=== PATIENT | male | born 1960 | race African-American/Black ===

== ENCOUNTER 2022-05-04 02:06 | Inpatient (IN) | payer MEDICAID ==
[~2022-05-04] VITALS: Ht 182.9 cm; Wt 156.7 kg
[~2022-05-04 02:06] MED LIST: ALLO100T PO; CARB-80 PO; HYDR-4833 PO; MELO1TAB56 PO; OMEP-260 PO; SENN8.6C PO; TIZA4TAB9 PO
[2022-05-04] MEDS ORDERED: SODIUM CHLORIDE 0.9% 1,000 ML IV ONE (02:30)
[2022-05-04] MEDS ORDERED: NITROGLYCERIN 0.4 MG SL TAB SL ONE (02:30)
[2022-05-04 03:34] LABS: Hemoglobin 12.5 g/dL (13.5-17.5)
[2022-05-04 03:37] LABS: Hematocrit 39.1 % (41.0-53.0); Mean Corpuscular Hemoglobin 26.9 pg (28.0-32.0); Red Blood Cells 4.66 10^6/uL (4.5-5.90); Red Cell Distribution Width 14.7 % (11.8-14.3)
[2022-05-04 03:58] LABS: INR 1.4 (0.9-1.15); Partial Thromboplastin Time 32.4 sec (23.6-33.0)
[2022-05-04 04:04] LABS: White Blood Cell 37.8 10^3/uL (4.4-10.8)
[2022-05-04 04:05] LABS: Basophils % (manual) 0 (0.0-2.0); Blast Cells 0; Eosinophils % (manual) 0 (0-7); Promyelocytes % 0; Reactive Lymphocytes 0
[2022-05-04] MEDS ORDERED: cefTRIAXone 1GM/50ML D5W 50 ML IV ONE (04:15)
[2022-05-04] MEDS ORDERED: AZITHROMYCIN 500MG/ 250ML 250 ML IV ONE (04:15)
[2022-05-04 04:26] LABS: Albumin 1.8 g/dL (3.4-5.0); BUN/Creatinine Ratio 27.5; Calcium 8.5 mg/dL (8.5-10.1)
[2022-05-04 04:28] LABS: Bilirubin, Total 0.8 mg/dL (0.2-1.0); Total Protein 7.7 g/dL (6.4-8.2)
[2022-05-04 04:39] LABS: Band Neutrophils % (manual) 20; Lymphocytes % (manual) 7 (10.0-50.0); Metamyelocytes % 2; Monocytes % (manual) 10 (0-12); Myelocytes % 2
[2022-05-04] MEDS ORDERED: MORPHINE SULFATE INJ 2 MG/ml SYRG IV PRN (06:15)
[2022-05-04] MEDS ORDERED: ACETAMINOPHEN 325 MG TAB PO PRN (06:15)
[2022-05-04] MEDS ORDERED: SODIUM CHLORIDE 0.9% 1,000 ML IV SCH (06:15)
[2022-05-04] MEDS ORDERED: LORazepam 0.5 MG TAB PO PRN (06:15)
[2022-05-04] MEDS ORDERED: NITROGLYCERIN 0.4 MG SL TAB SL PRN (06:15)
[2022-05-04] MEDS ORDERED: ZOLPIDEM TARTRATE 5 MG TAB PO PRN (06:15)
[2022-05-04] MEDS: DOCUSATE SOD 100 MG CAP PO SCH ×2 (10:00→10:34)
[2022-05-04] MEDS ORDERED: LISINOPRIL 10 MG TAB PO SCH (10:00)
[2022-05-04] MEDS: CLOPIDOGREL BISULFATE 75 MG TAB PO SCH ×2 (10:00→10:35)
[2022-05-04] MEDS ORDERED: METOPROLOL TARTRATE 25 MG TAB PO SCH (10:00)
[2022-05-04] MEDS: ENOXAPARIN SOD 60 MG/0.6 ML SYRINGE SC SCH (10:34)
[2022-05-04 11:47] LABS: Urine Bacteria FEW /hpf (None Seen); Urine Blood 1+ /uL (Negative); Urine Mucus FEW (None Seen); Urine Specific Gravity 1.028 (1.001-1.035); Urine WBC 166 /hpf (0 - 3)
[2022-05-04] MEDS ORDERED: VANCOMYCIN PER PHARMACY 0 MG IV SCH (13:00)
[2022-05-04] MEDS: VANCOMYCIN 1GM/250ML 250 ML IV SCH (15:16)
[2022-05-04 17:03] VITALS: BP 100/70
[2022-05-04] MEDS: PIPERACILLIN-TAZOB 3.375GM 100 ML IV SCH (17:25)
[2022-05-04 20:00] VITALS: BP 89/60
[2022-05-04] MEDS: ATORVASTATIN 20 MG TAB PO SCH (22:01)
[2022-05-05] VITALS (63 sets, daily range): BP systolic 82–132; BP diastolic 33–80
[2022-05-05] MEDS: PIPERACILLIN-TAZOB 3.375GM 100 ML IV SCH ×4 (00:15→18:36)
[2022-05-05] MEDS: VANCOMYCIN 1GM/250ML 250 ML IV SCH ×3 (01:00→15:30)
[2022-05-05 02:00] LABS: Hematocrit 34.6 % (41.0-53.0); Hemoglobin 11.2 g/dL (13.5-17.5); Mean Corpuscular Hemoglobin 27.3 pg (28.0-32.0); Mean Corpuscular Hgb Conc. 32.3 g/dL (32.0-36.0); Mean Corpuscular Volume 84.5 fL (80.0-100.0)
[2022-05-05 02:02] LABS: Red Blood Cells 4.09 10^6/uL (4.5-5.90); Red Cell Distribution Width 14.8 % (11.8-14.3)
[2022-05-05 02:18] LABS: Albumin 1.6 g/dL (3.4-5.0); Calcium 7.9 mg/dL (8.5-10.1); Magnesium 2.4 mg/dL (1.6-2.6); Potassium 4.6 mmol/L (3.5-5.1)
[2022-05-05 02:22] LABS: BUN/Creatinine Ratio 31.1; Bilirubin, Total 0.9 mg/dL (0.2-1.0); Total Protein 6.9 g/dL (6.4-8.2)
[2022-05-05 02:33] LABS: White Blood Cell 37.8 10^3/uL (4.4-10.8)
[2022-05-05 02:34] LABS: Basophils % (manual) 0 (0.0-2.0); Blast Cells 0; Eosinophils % (manual) 0 (0-7); Promyelocytes % 0; Reactive Lymphocytes 0
[2022-05-05 03:05] LABS: Band Neutrophils % (manual) 13; Metamyelocytes % 1; Monocytes % (manual) 5 (0-12); Myelocytes % 1
[2022-05-05 03:07] LABS: Lymphocytes % (manual) 3 (10.0-50.0)
[2022-05-05] MEDS ORDERED: ALBUMIN 5% 50 ML IV ONE (04:30)
[2022-05-05] MEDS ORDERED: ALBUMIN 25% 100 ML IV ONE (04:41)
[2022-05-05] MEDS ORDERED: ALBUMIN 25% 50 ML IV ONE ×2 (04:45)
[2022-05-05] MEDS ORDERED: cefTRIAXone 1GM/50ML D5W 50 ML IV SCH (05:00)
[2022-05-05] MEDS ORDERED: NOREPINEPHRINE 8 MG/250ML KIT 250 ML IV ONE (05:02)
[2022-05-05] MEDS: NOREPINEPHRINE 8 MG/250ML KIT 250 ML IV SCH (05:41)
[2022-05-05] MEDS ORDERED: AZITHROMYCIN 500MG/ 250ML 250 ML IV SCH (06:00)
[2022-05-05] MEDS: CLOPIDOGREL BISULFATE 75 MG TAB PO SCH (09:53)
[2022-05-05] MEDS: DOCUSATE SOD 100 MG CAP PO SCH (09:53)
[2022-05-05] MEDS: ENOXAPARIN SOD 60 MG/0.6 ML SYRINGE SC SCH (11:06)
[2022-05-05] MEDS ORDERED: ALBUMIN 25% 100 ML IV SCH (12:45)
[2022-05-05] MEDS: ALBUMIN 25% 100 ML IV SCH ×2 (14:00→22:23)
[2022-05-05] MEDS: ATORVASTATIN 20 MG TAB PO SCH (22:00)
[2022-05-06] VITALS (73 sets, daily range): BP systolic 94–129; BP diastolic 52–72
[2022-05-06] MEDS: PIPERACILLIN-TAZOB 3.375GM 100 ML IV SCH ×2 (00:30→06:00)
[2022-05-06] MEDS: VANCOMYCIN 1GM/250ML 250 ML IV SCH ×2 (02:15→13:13)
[2022-05-06 05:31] LABS: Hematocrit 30.6 % (41.0-53.0); Hemoglobin 9.8 g/dL (13.5-17.5)
[2022-05-06 05:33] LABS: Mean Corpuscular Hemoglobin 27.1 pg (28.0-32.0); Mean Corpuscular Hgb Conc. 31.9 g/dL (32.0-36.0); Red Blood Cells 3.59 10^6/uL (4.5-5.90); Red Cell Distribution Width 14.4 % (11.8-14.3)
[2022-05-06 05:49] LABS: Potassium 3.9 mmol/L (3.5-5.1)
[2022-05-06 05:53] LABS: White Blood Cell 32.8 10^3/uL (4.4-10.8)
[2022-05-06 05:54] LABS: Basophils % (manual) 0 (0.0-2.0); Blast Cells 0; Eosinophils % (manual) 0 (0-7); Metamyelocytes % 0; Myelocytes % 0; Promyelocytes % 0; Reactive Lymphocytes 0
[2022-05-06 05:57] LABS: Albumin 2.1 g/dL (3.4-5.0); BUN/Creatinine Ratio 28.1; Bilirubin, Total 1.4 mg/dL (0.2-1.0); Calcium 7.8 mg/dL (8.5-10.1); Total Protein 6.4 g/dL (6.4-8.2)
[2022-05-06 07:44] LABS: Band Neutrophils % (manual) 17; Lymphocytes % (manual) 4 (10.0-50.0); Monocytes % (manual) 3 (0-12)
[2022-05-06] MEDS: ENOXAPARIN SOD 40 MG/0.4 ML SYRINGE SC SCH (10:53)
[2022-05-06] MEDS: DOCUSATE SOD 100 MG CAP PO SCH (10:53)
[2022-05-06] MEDS: CLOPIDOGREL BISULFATE 75 MG TAB PO SCH (10:53)
[2022-05-06] MEDS ORDERED: OPTISON 3ml Vial for INJ IV ONE (11:21)
[2022-05-06] MEDS ORDERED: CEFEPIME 2 GM in SODIUM CHL 0.9% 50 ML IV SCH (14:00)
[2022-05-06] MEDS ORDERED: MEROPENEM 1GM IVPB 100 ML IV ONE (15:15)
[2022-05-06] MEDS ORDERED: IOHEXOL 350 MG/ML 100ML IJ ONE (15:44)
[2022-05-06] MEDS: NOREPINEPHRINE 8 MG/250ML KIT 250 ML IV SCH (20:00)
[2022-05-06] MEDS: MEROPENEM 1GM IVPB 100 ML IV SCH (21:31)
[2022-05-06] MEDS: ATORVASTATIN 20 MG TAB PO SCH (21:48)
[2022-05-06] MEDS: MORPHINE SULFATE INJ 2 MG/ml SYRG IV PRN (21:49)
[2022-05-07] VITALS (39 sets, daily range): BP systolic 97–124; BP diastolic 54–73
[2022-05-07] MEDS: NOREPINEPHRINE 8 MG/250ML KIT 250 ML IV SCH (04:12)
[2022-05-07] MEDS: MORPHINE SULFATE INJ 2 MG/ml SYRG IV PRN ×2 (04:45→21:08)
[2022-05-07 05:11] LABS: Hemoglobin 10.1 g/dL (13.5-17.5)
[2022-05-07 05:17] LABS: Hematocrit 31.3 % (41.0-53.0); Mean Corpuscular Hemoglobin 27.2 pg (28.0-32.0); Mean Corpuscular Hgb Conc. 32.1 g/dL (32.0-36.0); Mean Corpuscular Volume 84.8 fL (80.0-100.0); Red Cell Distribution Width 14.6 % (11.8-14.3)
[2022-05-07] MEDS: MEROPENEM 1GM IVPB 100 ML IV SCH ×3 (05:28→23:51)
[2022-05-07 05:55] LABS: White Blood Cell 33.7 10^3/uL (4.4-10.8)
[2022-05-07 05:56] LABS: Basophils % (manual) 0 (0.0-2.0); Blast Cells 0; Promyelocytes % 0; Reactive Lymphocytes 0
[2022-05-07 07:22] LABS: Band Neutrophils % (manual) 2; Eosinophils % (manual) 1 (0-7); Lymphocytes % (manual) 3 (10.0-50.0); Metamyelocytes % 2; Monocytes % (manual) 3 (0-12); Myelocytes % 1
[2022-05-07 07:41] LABS: Albumin 1.9 g/dL (3.4-5.0); Calcium 8.2 mg/dL (8.5-10.1); Potassium 4.2 mmol/L (3.5-5.1)
[2022-05-07 07:44] LABS: Bilirubin, Total 0.8 mg/dL (0.2-1.0); Total Protein 6.7 g/dL (6.4-8.2)
[2022-05-07] MEDS: ENOXAPARIN SOD 40 MG/0.4 ML SYRINGE SC SCH (10:00)
[2022-05-07] MEDS: CLOPIDOGREL BISULFATE 75 MG TAB PO SCH (10:00)
[2022-05-07] MEDS: DOCUSATE SOD 100 MG CAP PO SCH (10:00)
[2022-05-07] MEDS: ONDANSETRON HCL 4 MG/2 ML VIAL IV PRN (21:07)
[2022-05-07] MEDS: ATORVASTATIN 20 MG TAB PO SCH (23:51)
[2022-05-08] MEDS: MORPHINE SULFATE INJ 2 MG/ml SYRG IV PRN (03:54)
[2022-05-08] MEDS: ONDANSETRON HCL 4 MG/2 ML VIAL IV PRN (03:54)
[2022-05-08 05:00] VITALS: BP 130/70
[2022-05-08] MEDS: MEROPENEM 1GM IVPB 100 ML IV SCH ×3 (06:59→22:36)
[2022-05-08 08:38] VITALS: BP 119/74
[2022-05-08] MEDS: CLOPIDOGREL BISULFATE 75 MG TAB PO SCH (10:00)
[2022-05-08] MEDS: DOCUSATE SOD 100 MG CAP PO SCH (10:00)
[2022-05-08 12:48] VITALS: BP 126/66
[2022-05-08] MEDS: ENOXAPARIN SOD 40 MG/0.4 ML SYRINGE SC SCH (12:50)
[2022-05-08 17:27] VITALS: BP 121/70
[2022-05-08 22:00] VITALS: BP 119/67
[2022-05-08] MEDS: ATORVASTATIN 20 MG TAB PO SCH (22:00)
[2022-05-09 05:00] VITALS: BP 121/65
[2022-05-09 06:12] LABS: Hemoglobin 10.3 g/dL (13.5-17.5)
[2022-05-09 06:15] LABS: Hematocrit 32.8 % (41.0-53.0); Mean Corpuscular Hgb Conc. 31.6 g/dL (32.0-36.0); Mean Corpuscular Volume 85.5 fL (80.0-100.0); Red Blood Cells 3.83 10^6/uL (4.5-5.90); Red Cell Distribution Width 14.7 % (11.8-14.3); White Blood Cell 25.3 10^3/uL (4.4-10.8)
[2022-05-09 06:21] LABS: Basophils % (manual) 0 (0.0-2.0); Blast Cells 0; Promyelocytes % 0; Reactive Lymphocytes 0
[2022-05-09] MEDS: MEROPENEM 1GM IVPB 100 ML IV SCH ×3 (06:28→22:35)
[2022-05-09 06:37] LABS: Potassium 4.5 mmol/L (3.5-5.1)
[2022-05-09 06:56] LABS: Albumin 1.9 g/dL (3.4-5.0); BUN/Creatinine Ratio 38.9; Bilirubin, Total 0.8 mg/dL (0.2-1.0); Calcium 8.4 mg/dL (8.5-10.1); Total Protein 7.2 g/dL (6.4-8.2)
[2022-05-09 07:14] LABS: Band Neutrophils % (manual) 1; Eosinophils % (manual) 1 (0-7); Lymphocytes % (manual) 1 (10.0-50.0); Metamyelocytes % 1; Monocytes % (manual) 4 (0-12); Myelocytes % 3
[2022-05-09 09:00] VITALS: BP 124/72
[2022-05-09] MEDS ORDERED: VANCOMYCIN 1GM/250ML 250 ML IV ONE (11:00)
[2022-05-09] MEDS: ENOXAPARIN SOD 40 MG/0.4 ML SYRINGE SC SCH (12:12)
[2022-05-09] MEDS: CLOPIDOGREL BISULFATE 75 MG TAB PO SCH (12:12)
[2022-05-09] MEDS: DOCUSATE SOD 100 MG CAP PO SCH (12:13)
[2022-05-09 13:00] VITALS: BP 117/70
[2022-05-09 17:00] VITALS: BP 121/72
[2022-05-09 21:53] VITALS: BP 152/76
[2022-05-09] MEDS: ATORVASTATIN 20 MG TAB PO SCH (22:00)
[2022-05-10 05:00] VITALS: BP 138/77
[2022-05-10 05:54] LABS: Hemoglobin 10.5 g/dL (13.5-17.5); Mean Corpuscular Hemoglobin 27.3 pg (28.0-32.0); Red Blood Cells 3.85 10^6/uL (4.5-5.90); Red Cell Distribution Width 14.7 % (11.8-14.3)
[2022-05-10 05:57] LABS: Hematocrit 32.9 % (41.0-53.0); Mean Corpuscular Hgb Conc. 31.8 g/dL (32.0-36.0); Mean Corpuscular Volume 85.6 fL (80.0-100.0); White Blood Cell 19.8 10^3/uL (4.4-10.8)
[2022-05-10 06:01] LABS: Basophils % (manual) 0 (0.0-2.0); Blast Cells 0; Eosinophils % (manual) 0 (0-7); Promyelocytes % 0; Reactive Lymphocytes 0
[2022-05-10 06:03] LABS: Calcium 8.4 mg/dL (8.5-10.1); Potassium 4.4 mmol/L (3.5-5.1)
[2022-05-10] MEDS: MEROPENEM 1GM IVPB 100 ML IV SCH ×3 (06:05→22:22)
[2022-05-10 06:07] LABS: BUN/Creatinine Ratio 43.4; Bilirubin, Total 0.5 mg/dL (0.2-1.0); Total Protein 7.4 g/dL (6.4-8.2)
[2022-05-10 09:00] VITALS: BP 143/75
[2022-05-10 09:28] LABS: Band Neutrophils % (manual) 10; Lymphocytes % (manual) 11 (10.0-50.0); Metamyelocytes % 1; Monocytes % (manual) 2 (0-12); Myelocytes % 1
[2022-05-10] MEDS: ENOXAPARIN SOD 40 MG/0.4 ML SYRINGE SC SCH (10:49)
[2022-05-10] MEDS: CLOPIDOGREL BISULFATE 75 MG TAB PO SCH (10:49)
[2022-05-10] MEDS: DOCUSATE SOD 100 MG CAP PO SCH (10:49)
[2022-05-10 13:00] VITALS: BP 127/71
[2022-05-10] MEDS ORDERED: VANCOMYCIN 1GM/250ML 250 ML IV ONE (13:15)
[2022-05-10 17:00] VITALS: BP 157/85
[2022-05-10 21:57] VITALS: BP 173/91
[2022-05-10] MEDS: ATORVASTATIN 20 MG TAB PO SCH (22:00)
[2022-05-10 22:22] VITALS: BP 146/82
[2022-05-10] MEDS: ACETAMINOPHEN 650 MG RECT SUPP PR PRN (22:22)
[2022-05-10] MEDS ORDERED: Jevity 1.2 Cal/Fiber 1 Liter NG SCH (23:30)
[2022-05-11 04:48] VITALS: BP 140/77
[2022-05-11] MEDS: MEROPENEM 1GM IVPB 100 ML IV SCH ×3 (05:46→22:29)
[2022-05-11 06:13] LABS: Hematocrit 36.1 % (41.0-53.0); Hemoglobin 11.7 g/dL (13.5-17.5); Mean Corpuscular Hgb Conc. 32.4 g/dL (32.0-36.0); Mean Corpuscular Volume 86.4 fL (80.0-100.0); Red Blood Cells 4.18 10^6/uL (4.5-5.90); Red Cell Distribution Width 14.6 % (11.8-14.3); White Blood Cell 22.3 10^3/uL (4.4-10.8)
[2022-05-11 06:17] LABS: Basophils % (manual) 0 (0.0-2.0); Blast Cells 0; Promyelocytes % 0; Reactive Lymphocytes 0
[2022-05-11 06:19] LABS: Potassium 4.6 mmol/L (3.5-5.1)
[2022-05-11 06:22] LABS: BUN/Creatinine Ratio 45.5
[2022-05-11 07:23] LABS: Band Neutrophils % (manual) 12; Eosinophils % (manual) 1 (0-7); Lymphocytes % (manual) 5 (10.0-50.0); Metamyelocytes % 1; Monocytes % (manual) 10 (0-12); Myelocytes % 2
[2022-05-11 09:00] VITALS: BP 115/64
[2022-05-11] MEDS: Pro-Stat SF 30ml Vanilla NG SCH ×2 (10:00→22:00)
[2022-05-11] MEDS: CLOPIDOGREL BISULFATE 75 MG TAB PO SCH (10:00)
[2022-05-11] MEDS: DOCUSATE SOD 100 MG CAP PO SCH (10:00)
[2022-05-11] MEDS: MULTIPLE VITAMINS W/ MINERALS TAB PO SCH (10:00)
[2022-05-11] MEDS: Juven Fruit Punch Powder PACKET 28.8gm PO SCH (10:00)
[2022-05-11] MEDS: ENOXAPARIN SOD 40 MG/0.4 ML SYRINGE SC SCH (11:37)
[2022-05-11] MEDS: SODIUM CHLORIDE 0.9% 1,000 ML IV SCH ×2 (11:40→23:50)
[2022-05-11 17:00] VITALS: BP 130/72
[2022-05-11 22:00] VITALS: BP 142/80
[2022-05-11] MEDS: ATORVASTATIN 20 MG TAB PO SCH (22:30)
[2022-05-12 05:00] VITALS: BP 132/70
[2022-05-12] MEDS: MEROPENEM 1GM IVPB 100 ML IV SCH ×3 (06:19→21:56)
[2022-05-12 07:09] LABS: Potassium 4.5 mmol/L (3.5-5.1)
[2022-05-12 07:12] LABS: Eosinophils # (auto) 0.1 10 ^3/uL (0-0.8); Hematocrit 34.7 % (41.0-53.0); Mean Corpuscular Hemoglobin 27.6 pg (28.0-32.0); Mean Corpuscular Hgb Conc. 31.6 g/dL (32.0-36.0); White Blood Cell 21.4 10^3/uL (4.4-10.8)
[2022-05-12 07:14] LABS: Basophils # (auto) 0.1 10 ^3/uL (0-0.2); Basophils % (auto) 0.3 % (0.0-2.0); Eosinophils % (auto) 0.5 % (0.0-7.0); Lymphocytes # (auto) 1.6 10 ^3/uL (0.4-5.4); Lymphocytes % (auto) 7.5 % (10.0-50.0); Mean Corpuscular Volume 87.4 fL (80.0-100.0); Monocytes # (auto) 2.2 10 ^3/uL (0-1.3); Monocytes % (auto) 10.1 % (0.0-12.0); Neutrophils # (auto) 17.5 10 ^3/uL (1.6-8.6); Neutrophils % (auto) 81.6 % (37.0-80.0); Red Blood Cells 3.97 10^6/uL (4.5-5.90); Red Cell Distribution Width 14.6 % (11.8-14.3)
[2022-05-12 07:24] LABS: Albumin 1.9 g/dL (3.4-5.0); BUN/Creatinine Ratio 41.6; Bilirubin, Total 0.4 mg/dL (0.2-1.0); Calcium 8.4 mg/dL (8.5-10.1); Total Protein 7.6 g/dL (6.4-8.2)
[2022-05-12 09:00] VITALS: BP 133/67
[2022-05-12] MEDS: DOCUSATE SOD 100 MG CAP PO SCH (09:06)
[2022-05-12] MEDS: CLOPIDOGREL BISULFATE 75 MG TAB PO SCH (09:08)
[2022-05-12] MEDS: MULTIPLE VITAMINS W/ MINERALS TAB PO SCH (09:08)
[2022-05-12] MEDS: ENOXAPARIN SOD 40 MG/0.4 ML SYRINGE SC SCH (09:08)
[2022-05-12] MEDS: D5W 5% 1,000 ML IV SCH ×2 (11:46→23:35)
[2022-05-12 12:17] LABS: Urine Bacteria MANY /hpf (None Seen); Urine Blood 3+ /uL (Negative); Urine Mucus MODERATE (None Seen); Urine Specific Gravity 1.022 (1.001-1.035); Urine WBC 532 /hpf (0 - 3); Urine WBC Clumps PRESENT /hpf (None Seen)
[2022-05-12 12:19] LABS: Urine Budding Yeast Moderate /hpf (None Seen)
[2022-05-12 13:00] VITALS: BP 137/85
[2022-05-12] MEDS: Pro-Stat SF 30ml Vanilla NG SCH ×2 (15:57→22:00)
[2022-05-12 17:00] VITALS: BP 137/84
[2022-05-12] MEDS: Juven Fruit Punch Powder PACKET 28.8gm PO SCH (17:33)
[2022-05-12] MEDS: VANCOMYCIN 1GM/250ML 250 ML IV SCH (17:33)
[2022-05-12] MEDS: ATORVASTATIN 20 MG TAB PO SCH (21:56)
[2022-05-12 22:53] VITALS: BP 122/72
[2022-05-13 05:11] VITALS: BP 130/75
[2022-05-13 05:40] LABS: Albumin 1.9 g/dL (3.4-5.0); Calcium 8.6 mg/dL (8.5-10.1); Potassium 4.8 mmol/L (3.5-5.1)
[2022-05-13 05:44] LABS: BUN/Creatinine Ratio 41.9; Bilirubin, Total 0.3 mg/dL (0.2-1.0); Total Protein 7.3 g/dL (6.4-8.2)
[2022-05-13] MEDS: MEROPENEM 1GM IVPB 100 ML IV SCH ×3 (06:01→22:48)
[2022-05-13 08:00] VITALS: BP 114/71
[2022-05-13] MEDS: DOCUSATE SOD 100 MG CAP PO SCH (08:49)
[2022-05-13] MEDS: MULTIPLE VITAMINS W/ MINERALS TAB PO SCH (08:50)
[2022-05-13] MEDS: CLOPIDOGREL BISULFATE 75 MG TAB PO SCH (08:51)
[2022-05-13] MEDS: ENOXAPARIN SOD 40 MG/0.4 ML SYRINGE SC SCH (08:52)
[2022-05-13] MEDS: Pro-Stat SF 30ml Vanilla NG SCH ×3 (10:00→22:00)
[2022-05-13] MEDS: Juven Fruit Punch Powder PACKET 28.8gm PO SCH ×2 (10:00→16:56)
[2022-05-13 12:00] VITALS: BP 105/65
[2022-05-13] MEDS ORDERED: PANTOPRAZOLE 40 MG/10 ML VIAL INJ IV ONE (14:45)
[2022-05-13] MEDS: D5W 5% 1,000 ML IV SCH (15:37)
[2022-05-13 16:00] VITALS: BP 102/63
[2022-05-13] MEDS: MORPHINE SULFATE INJ 2 MG/ml SYRG IV PRN (16:39)
[2022-05-13] MEDS: VANCOMYCIN 1GM/250ML 250 ML IV SCH (21:30)
[2022-05-13] MEDS: ATORVASTATIN 20 MG TAB PO SCH (22:00)
[2022-05-13 22:21] VITALS: BP 117/63
[2022-05-14] MEDS: MORPHINE SULFATE INJ 2 MG/ml SYRG IV PRN ×2 (00:02→14:00)
[2022-05-14] MEDS: D5W 5% 1,000 ML IV SCH ×4 (02:14→18:12)
[2022-05-14 05:06] VITALS: BP 120/66
[2022-05-14] MEDS: MEROPENEM 1GM IVPB 100 ML IV SCH ×3 (05:46→23:03)
[2022-05-14 06:12] LABS: BUN/Creatinine Ratio 38.5; Calcium 8.6 mg/dL (8.5-10.1); Potassium 5.4 mmol/L (3.5-5.1)
[2022-05-14 08:00] VITALS: BP 118/77
[2022-05-14] MEDS ORDERED: DEXTROSE (50%) 50ML SYRG IV PRN (09:00)
[2022-05-14] MEDS: MULTIPLE VITAMINS W/ MINERALS TAB PO SCH (10:00)
[2022-05-14] MEDS: DOCUSATE SOD 100 MG CAP PO SCH (10:00)
[2022-05-14] MEDS: Juven Fruit Punch Powder PACKET 28.8gm PO SCH (10:00)
[2022-05-14] MEDS: METOPROLOL TARTRATE 25 MG TAB NG SCH ×2 (10:00→22:00)
[2022-05-14] MEDS: CLOPIDOGREL BISULFATE 75 MG TAB PO SCH (10:00)
[2022-05-14] MEDS: Pro-Stat SF 30ml Vanilla NG SCH ×2 (10:00→22:00)
[2022-05-14 12:00] VITALS: BP 123/69
[2022-05-14] MEDS: PANTOPRAZOLE 40 MG/10 ML VIAL INJ IV SCH (14:05)
[2022-05-14] MEDS: ENOXAPARIN SOD 40 MG/0.4 ML SYRINGE SC SCH (14:06)
[2022-05-14] MEDS ORDERED: ceFAZolin 1GM/50ML 50 ML IV ONE (14:30)
[2022-05-14] MEDS: ACETAMINOPHEN 650 MG RECT SUPP PR PRN (15:00)
[2022-05-14 16:00] VITALS: BP 116/68
[2022-05-14] MEDS: InsuLIN REG 1unit/0.01ml Soln (100units/ml) SC SCH ×3 (17:00→22:00)
[2022-05-14] MEDS: AMPICILLIN SOD 2GM INJ 2 GM in SODIUM CHL 0.9% 100 ML IV SCH ×2 (18:00→18:01)
[2022-05-14] MEDS: ACCU-CHEK COMFORT CURVE STRIP VI SCH ×3 (18:01→23:03)
[2022-05-14 22:00] VITALS: BP 106/70
[2022-05-14] MEDS: ATORVASTATIN 20 MG TAB PO SCH (22:00)
[2022-05-15] MEDS: AMPICILLIN SOD 2GM INJ 2 GM in SODIUM CHL 0.9% 100 ML IV SCH ×4 (00:45→18:48)
[2022-05-15] MEDS: D5W 5% 1,000 ML IV SCH ×5 (02:00→21:42)
[2022-05-15 05:00] VITALS: BP 106/65
[2022-05-15 05:55] LABS: Hematocrit 32.3 % (41.0-53.0); Hemoglobin 9.9 g/dL (13.5-17.5); Mean Corpuscular Hemoglobin 27.1 pg (28.0-32.0); Mean Corpuscular Hgb Conc. 30.8 g/dL (32.0-36.0); Mean Corpuscular Volume 87.9 fL (80.0-100.0); Red Blood Cells 3.67 10^6/uL (4.5-5.90); Red Cell Distribution Width 15.4 % (11.8-14.3)
[2022-05-15 06:09] LABS: Albumin 1.7 g/dL (3.4-5.0); BUN/Creatinine Ratio 36.5; Calcium 8.2 mg/dL (8.5-10.1); INR 1.29 (0.9-1.15); Partial Thromboplastin Time 31.8 sec (24.6-33.4); Potassium 4.6 mmol/L (3.5-5.1)
[2022-05-15 06:11] LABS: Bilirubin, Total 0.4 mg/dL (0.2-1.0); Total Protein 6.8 g/dL (6.4-8.2)
[2022-05-15 06:27] LABS: White Blood Cell 35.7 10^3/uL (4.4-10.8)
[2022-05-15 06:28] LABS: Basophils % (manual) 0 (0.0-2.0); Blast Cells 0; Eosinophils % (manual) 0 (0-7); Metamyelocytes % 0; Myelocytes % 0; Promyelocytes % 0; Reactive Lymphocytes 0
[2022-05-15] MEDS: MEROPENEM 1GM IVPB 100 ML IV SCH ×3 (06:52→21:35)
[2022-05-15] MEDS: ACCU-CHEK COMFORT CURVE STRIP VI SCH ×4 (07:00→22:15)
[2022-05-15] MEDS: InsuLIN REG 1unit/0.01ml Soln (100units/ml) SC SCH ×4 (07:00→22:00)
[2022-05-15 07:05] LABS: Band Neutrophils % (manual) 1; Lymphocytes % (manual) 11 (10.0-50.0); Monocytes % (manual) 3 (0-12)
[2022-05-15 09:00] VITALS: BP 97/62
[2022-05-15] MEDS: DOCUSATE SOD 100 MG CAP PO SCH (09:36)
[2022-05-15] MEDS: ENOXAPARIN SOD 40 MG/0.4 ML SYRINGE SC SCH ×2 (09:36→09:47)
[2022-05-15] MEDS: CLOPIDOGREL BISULFATE 75 MG TAB PO SCH (09:47)
[2022-05-15] MEDS: METOPROLOL TARTRATE 25 MG TAB NG SCH ×2 (10:00→21:51)
[2022-05-15] MEDS: Juven Fruit Punch Powder PACKET 28.8gm PO SCH (10:32)
[2022-05-15] MEDS: Pro-Stat SF 30ml Vanilla NG SCH ×2 (10:32→22:16)
[2022-05-15] MEDS: PANTOPRAZOLE 40 MG/10 ML VIAL INJ IV SCH (10:38)
[2022-05-15] MEDS: MULTIPLE VITAMINS W/ MINERALS TAB PO SCH (10:40)
[2022-05-15] MEDS ORDERED: NOREPINEPHRINE 8 MG/250ML KIT 250 ML IV SCH (11:30)
[2022-05-15 13:00] VITALS: BP 92/58
[2022-05-15 17:00] VITALS: BP 89/63
[2022-05-15] MEDS: ATORVASTATIN 20 MG TAB PO SCH (21:35)
[2022-05-15 22:00] VITALS: BP 92/60
[2022-05-16] MEDS: AMPICILLIN SOD 2GM INJ 2 GM in SODIUM CHL 0.9% 100 ML IV SCH ×4 (00:37→17:58)
[2022-05-16] MEDS: D5W 5% 1,000 ML IV SCH ×5 (01:00→21:04)
[2022-05-16 05:00] VITALS: BP 109/70
[2022-05-16] MEDS: MEROPENEM 1GM IVPB 100 ML IV SCH ×3 (06:11→23:02)
[2022-05-16] MEDS: ACCU-CHEK COMFORT CURVE STRIP VI SCH ×4 (06:46→22:55)
[2022-05-16] MEDS: InsuLIN REG 1unit/0.01ml Soln (100units/ml) SC SCH ×4 (06:46→22:00)
[2022-05-16 09:00] VITALS: BP 100/63
[2022-05-16] MEDS: CLOPIDOGREL BISULFATE 75 MG TAB PO SCH (09:32)
[2022-05-16] MEDS: ENOXAPARIN SOD 40 MG/0.4 ML SYRINGE SC SCH (09:33)
[2022-05-16] MEDS: Pro-Stat SF 30ml Vanilla NG SCH ×2 (09:34→22:58)
[2022-05-16] MEDS: Juven Fruit Punch Powder PACKET 28.8gm PO SCH (09:34)
[2022-05-16] MEDS: PANTOPRAZOLE 40 MG/10 ML VIAL INJ IV SCH (09:38)
[2022-05-16] MEDS: MULTIPLE VITAMINS W/ MINERALS TAB PO SCH (09:38)
[2022-05-16] MEDS: DOCUSATE SOD 100 MG CAP PO SCH (09:45)
[2022-05-16] MEDS: METOPROLOL TARTRATE 25 MG TAB NG SCH ×2 (10:00→22:00)
[2022-05-16 13:00] VITALS: BP 108/66
[2022-05-16 17:00] VITALS: BP 89/60
[2022-05-16 22:00] VITALS: BP 88/55
[2022-05-16] MEDS: ATORVASTATIN 20 MG TAB PO SCH (23:02)
[2022-05-17] MEDS: AMPICILLIN SOD 2GM INJ 2 GM in SODIUM CHL 0.9% 100 ML IV SCH ×3 (00:36→12:44)
[2022-05-17] MEDS: D5W 5% 1,000 ML IV SCH ×3 (02:00→12:44)
[2022-05-17 05:00] VITALS: BP 100/63
[2022-05-17] MEDS: MEROPENEM 1GM IVPB 100 ML IV SCH ×2 (05:29→14:00)
[2022-05-17 05:41] LABS: Calcium 7.9 mg/dL (8.5-10.1); Potassium 5.2 mmol/L (3.5-5.1)
[2022-05-17 05:45] LABS: Albumin 1.5 g/dL (3.4-5.0); BUN/Creatinine Ratio 39.3
[2022-05-17] MEDS: ACCU-CHEK COMFORT CURVE STRIP VI SCH ×3 (06:45→12:44)
[2022-05-17] MEDS: InsuLIN REG 1unit/0.01ml Soln (100units/ml) SC SCH ×2 (06:49→11:30)
[2022-05-17 09:00] VITALS: BP 99/60
[2022-05-17] MEDS: MULTIPLE VITAMINS W/ MINERALS TAB PO SCH (10:00)
[2022-05-17] MEDS: ENOXAPARIN SOD 40 MG/0.4 ML SYRINGE SC SCH (10:00)
[2022-05-17] MEDS: CLOPIDOGREL BISULFATE 75 MG TAB PO SCH (10:00)
[2022-05-17] MEDS ORDERED: DOCUSATE ORAL LIQUID 100 MG/10 ML UD NG SCH (10:00)
[2022-05-17] MEDS: Juven Fruit Punch Powder PACKET 28.8gm PO SCH (10:29)
[2022-05-17] MEDS: PANTOPRAZOLE 40 MG/10 ML VIAL INJ IV SCH (10:29)
[2022-05-17] MEDS: Pro-Stat SF 30ml Vanilla NG SCH (10:29)
[2022-05-17] MEDS ORDERED: ALBUMIN 25% 100 ML IV SCH (11:00)
[2022-05-17 13:00] VITALS: BP 102/66
[2022-05-17 14:02] VITALS: BP 88/55
== END 2022-05-17 14:20 | disposition hospice, home (50) | DRG 720 ==
LOC: EDBD 02:06 → ER 02:06 → TELE 06:15 → TELE-EAST 16:15 → ICU CENTRL 05-05 05:10 → TELE-EAST 05-07 16:54
PROVIDERS: ADMIT Hospitalist; ATTEND Internal Medicine
PROC: 05H933Z Insertion of Infusion Device into Right Brachial Vein, Percutaneous Approach (ICD-10-PCS; principal; 2022-05-06)
PROC: B54MZZA Ultrasonography of Right Upper Extremity Veins, Guidance (ICD-10-PCS; 2022-05-06)
DX: A41.9 Sepsis, unspecified organism (principal); J96.01 Acute respiratory failure with hypoxia; R65.21 Severe sepsis with septic shock; E43 Unspecified severe protein-calorie malnutrition; G93.41 Metabolic encephalopathy; G20 Parkinson's disease; E87.0 Hyperosmolality and hypernatremia; I25.10 Atherosclerotic heart disease of native coronary artery without angina pectoris; E66.01 Morbid (severe) obesity due to excess calories; J98.11 Atelectasis; M19.90 Unspecified osteoarthritis, unspecified site; L89.159 Pressure ulcer of sacral region, unspecified stage; N17.9 Acute kidney failure, unspecified; I50.20 Unspecified systolic (congestive) heart failure; L89.95 Pressure ulcer of unspecified site, unstageable; Z66 Do not resuscitate; R74.01 Elevation of levels of liver transaminase levels; R73.03 Prediabetes; K21.9 Gastro-esophageal reflux disease without esophagitis; M10.9 Gout, unspecified; Z95.5 Presence of coronary angioplasty implant and graft; Z68.42 Body mass index [BMI] 45.0-49.9, adult; Z51.5 Encounter for palliative care; Z86.73 Personal history of transient ischemic attack (TIA), and cerebral infarction without residual deficits; Z74.01 Bed confinement status; Z79.899 Other long term (current) drug therapy
CPT/HCPCS: 36415; 36600; 70450; 70496; 70498; 71045; 80048; 80053; 80061; 80069; 80202; 81001; 82565; 82805; 82962; 83036; 83605; 83615; 83735; 83880; 83930; 83935; 84300; 84443; 84484; 85007; 85025; 85027; 85610; 85730; 87040; 87077; 87081; 87086; 87088; 87186; 87205; 87493; 92610; 93005; 93306; 93925; 96365; 96367; 99291; C9113; G0378; J0696; J1815; J2185; J2405; J2543; P9047; Q9956